=== PATIENT | female | born 1990 | race Caucasian/White ===

== ENCOUNTER 2021-09-16 17:14 | Emergency (ER) | payer OTHER ==
[~2021-09-16] VITALS: Ht 180.3 cm; Wt 149.7 kg
[2021-09-16 18:56] LABS: BASOPHILS ABSOLUTE AUTO 0.03 K/mm3 (0.00-0.23); BASOPHILS PERCENT AUTO 0 % (0-2); EOSINOPHILS ABSOLUTE AUTO 0.06 K/mm3 (0.00-0.68); EOSINOPHILS PERCENT AUTO 1 % (0-6); Hematocrit 40.3 % (33.0-51.0); Hemoglobin 13.3 g/dL (11.5-16.0); IMMATURE GRAN ABSOLUTE AUTO 0.03 K/mm3 (0.00-0.10); IMMATURE GRAN PERCENT AUTO 0 % (0-1); LYMPHOCYTES ABSOLUTE AUTO 1.75 K/mm3 (0.84-5.20); LYMPHOCYTES PERCENT AUTO 22 % (21-46); MONOCYTES ABSOLUTE AUTO 0.67 K/mm3 (0.16-1.47); MONOCYTES PERCENT AUTO 8 % (4-13); Mean Corpuscular HGB 28.6 pg (26.0-34.0); Mean Corpuscular Volume 87 fL (80-100); Mean Platelet Volume 9.2 fL (9.1-12.4); NEUTROPHILS ABSOLUTE AUTO 5.59 K/mm3 (1.96-9.15); NEUTROPHILS PERCENT AUTO 69 % (41-73); Platelet Count 213 K/mm3 (150-400); RDW Coefficient Variation 13.3 % (11.7-14.2); RDW Standard Deviation 41.6 fL (35.1-46.3); Red Blood Cell Count 4.65 M/mm3 (3.80-5.20); White Blood Cell Count 8.13 K/mm3 (4.00-11.30)
[2021-09-16 19:18] LABS: Albumin, Blood 3.4 g/dL (3.4-5.0); Albumin/Globulin Ratio 0.9 (0.8-1.8); Bilirubin, Total 0.6 mg/dL (0.1-1.0); Bun/Creatinine Ratio 21.3 (12.0-20.0); Creatinine, Blood 0.52 mg/dL (0.40-1.00); Globulin, Blood 3.9 g/dL (2.2-4.0); Total Protein, Blood 7.3 g/dL (6.4-8.2)
[2021-09-16] MEDS ORDERED: SULTRIDS PO (20:23)
[2021-09-16] MEDS ORDERED: AMOCLA875 PO (20:23)
== END 2021-09-16 20:41 | disposition home or self-care (01) ==
LOC: ER 17:14
PROVIDERS: Student in an Organized Health Care Education/Training Program
DX: L03.211 Cellulitis of face (principal); K04.7 Periapical abscess without sinus
CPT/HCPCS: 70487; 80053; 85025; A9270; Q9967